=== PATIENT | male | born 1960 | race Caucasian/White ===

== ENCOUNTER 2017-01-20 23:53 | Emergency (ER) | payer OTHER ==
[~2017-01-20] VITALS: Ht 172.7 cm; Wt 78.9 kg
[2017-01-21 00:10] VITALS: BP 150/98
[2017-01-21] MEDS ORDERED: Tetanus/Diptheria/Pertussis Vaccine 0.5ml Syr IM ONE (00:30)
[2017-01-21] MEDS ORDERED: KEFLEX500 MG ORAL (01:10)
[2017-01-21] MEDS ORDERED: HYDROCODON-ACE1 EA15 ORAL (01:10)
--- NOTE | 2017-01-21 01:11 | Emergency Room Report ---
History of Present Illness General Chief Complaint: Laceration Source: Patient Present Illness HPI Is a 56-year-old male who works at a [employer]. He presents with chief complaint of laceration to the left foot. He is walking to the door when he swimming back and cause a laceration to the kidney area. Able to walk on it. Bleeding initially. No other injury. Allergies: Coded Allergies: OXYTETRACYCLINE (Verified Allergy, Unknown, 01/21/17) PENICILLINS (Verified Allergy, Unknown, 01/21/17) TETRACYCLINE (Verified Allergy, Unknown, 01/21/17) Patient History Past Medical History: see triage record, old chart reviewed Past Surgical History: none Pertinent Family History: none Social History: Denies: smoking Immunizations: other Reviewed Nursing Documentation: PMH: Agreed, PSxH: Agreed Nursing Documentation-PM Past Medical History: No Stated History Review of Systems Eye: Denies: eye pain, blurred vision ENT: Denies: ear pain, nose congestion, throat swelling Respiratory: Denies: cough, shortness of breath Cardiovascular: Denies: chest pain, palpitations Gastrointestinal: Denies: abdominal pain, diarrhea, nausea, vomiting Musculoskeletal: Denies: back pain, joint pain Skin: Denies: rash Neurological: Denies: headache, numbness Endocrine: Denies: increased thirst, increased urine Hematologic/Lymphatic: Denies: easy bruising All Other Systems: negative except mentioned in HPI Physical Exam Vital Signs Date Time Temp Pulse Resp B/P (MAP) Pulse Ox O2 Delivery O2 Flow Rate FiO2 01/21/17 00:00 97.9 86 19 173/110 95 Room Air vitals normal except high blood pressure Sp02 EP Interpretation: reviewed, normal General Appearance: well appearing, no apparent distress, alert Head: normocephalic, atraumatic Eyes: bilateral eye PERRL, bilateral eye EOMI ENT: hearing grossly normal, normal pharynx Neck: full range of motion, supple, no meningismus Respiratory: chest non-tender, lungs clear, normal breath sounds Cardiovascular #1: regular rate, rhythm, no murmur Gastrointestinal: normal bowel sounds, non tender, no mass, no organomegaly, no bruit, non-distended Musculoskeletal: back normal, gait/station normal, normal range of motion, other - Left foot: 3 cm avulsion laceration over the Achilles tendon. Tendon itself is intact. No foreign body. Sensation normal. Full range of motion the ankle. Neurologic: alert, oriented x3 Psychiatric: mood/affect normal Skin: warm/dry Procedures Laceration/Wound Repair Laceration/Wound Repair : Consent: Verbal Wound Location: lower extremity Wound's Depth, Shape: irregular, flap, stellate Wound Length (cm): 3 Wound Explored: no foreign body removed Irrigated w/ Saline (ccs): 1000 Betadine Prep?: Yes Anesthesia: 1% Lidocaine Volume Anesthetic (ccs): 3 Wound Repaired With: sutures Suture Size/Type: 4:0, proline Number of Sutures: 7 Patient Tolerated: Well Complications: None Medical Decision Making Diagnostic Impression: Primary Impression: Foot laceration Qualified Codes: S91.312A - Laceration without foreign body, left foot, initial encounter ER Course She with a laceration to left foot/acutely area. No tendon laceration. No foreign body. We'll discharge him. Last Vital Signs Date Time Temp Pulse Resp B/P (MAP) Pulse Ox O2 Delivery O2 Flow Rate FiO2 01/21/17 00:00 97.9 86 19 173/110 95 Room Air Status: improved Disposition: HOME, SELF-CARE Condition: Stable Scripts Cephalexin* (KEFLEX*) 500 Mg Capsule 500 MG ORAL TID, #21 CAP 0 Refills Prov: MEDINA COYLE M.D. 01/21/17 Hydrocodone/Acetaminophen 5-325* (HYDROCODONE/ACETAMINOPHEN 5-325*) 1 Each Tablet 1 TAB ORAL Q6H Y for For Pain, #15 TAB 0 Refills Prov: MEDINA COYLE M.D. 01/21/17 Patient Instructions: Laceration Care, Adult Additional Instructions: Sutures out in 7-10 days. Return if symptom worsen. Followup with your DrTip in 7-10 days. MEDINA COYLE M.D. Jan 21, 2017 01:11
[2017-01-21 01:16] VITALS: BP 140/89
== END 2017-01-21 01:16 | disposition home or self-care (01) ==
LOC: EMR 01-21 00:22
DX: S91.312A Laceration without foreign body, left foot, initial encounter (principal); Z23 Encounter for immunization; Z88.1 Allergy status to other antibiotic agents; Z88.0 Allergy status to penicillin; W22.8XXA Striking against or struck by other objects, initial encounter; Y92.9 Unspecified place or not applicable
CPT/HCPCS: 64450; 90471; 90715; 99284